=== PATIENT | female | born 1990 | race Caucasian/White ===

== ENCOUNTER 2018-09-28 16:45 | Inpatient (IN) | payer OTHER ==
[2018-09-28] MEDS: SODIUM CHLORIDE 0.9% FLUSH 10 ML SOL IV SCH (20:00)
[2018-09-28] MEDS ORDERED: CITRIC ACID/SODIUM CITRATE SOL PO ONE (20:11)
[2018-09-28] MEDS ORDERED: SODIUM CHLORIDE 0.9% 50 ML 25 ML IV PRN ×2 (20:11→20:33)
[2018-09-28 20:24] LABS: BASOPHILS % (AUTO) 1 % (0-3); EOSINOPHILS % (AUTO) 3 % (0-9); HEMATOCRIT 40 % (35-47); HEMOGLOBIN 13.7 gm/dl (12.0-15.5); LYMPHOCYTES % (AUTO) 17.5 % (10-50); MEAN CORPUSCULAR HEMOGLOBIN 29.2 pg (27.0-32.0); MEAN CORPUSCULAR HGB CONC 34.5 gm/dl (32.0-36.0); MEAN CORPUSCULAR VOLUME 85 fL (81-99); NEUTROPHILS % (AUTO) 73.1 % (37-80)
[2018-09-28] MEDS ORDERED: CEFAZOLIN SODIUM 1 GM PDS 2 GM in SODIUM CHLORIDE 0.9% 100 ML 100 ML IV ONE (20:33)
[2018-09-28] MEDS: LACTATED RINGERS 1,000 ML IV SCH ×2 (20:45→21:19)
[2018-09-28 21:11] LABS: ABO A; RH TYPE Positive
[2018-09-28 21:15] LABS: ANTIBODY SCREEN Negative
[2018-09-28 21:51] LABS: APPEARANCE,URINE Clear; BILIRUBIN,URINE NEGATIVE (NEGATIVE); COLOR,URINE Yellow; GLUCOSE, URINE (UA) NEGATIVE (NEGATIVE); KETONES,URINE NEGATIVE (NEGATIVE); LEUKOCYTE ESTERASE ,URINE NEGATIVE (NEGATIVE); NITRATE,URINE NEGATIVE (NEGATIVE); OCCULT BLOOD,URINE TRACE LYSED (NEG-TRACE); PH,URINE 6.5; UROBILINOGEN,URINE 0.2 (0.2-1.0 EU)
[2018-09-28 22:02] LABS: BACTERIA RARE (< 1+); CRYSTALS NEGATIVE (0-3 AVE/HPF); EPITHELIAL CELLS 0-2 (SQUAMOUS); RBC,URINE NEG (0-3AV/HPF); WBC,URINE NEG (0-5AV/HPF)
[2018-09-28] MEDS ORDERED: FENTANYL 100MCG/2ML SOL ONE (22:04)
[2018-09-28] MEDS ORDERED: ONDANSETRON HCL 4 MG/2 ML SOL ONE (22:16)
[2018-09-28] MEDS ORDERED: CEFAZOLIN SODIUM 1 GM PDS ONE (22:16)
[2018-09-28] MEDS ORDERED: [UNRECOGNIZED DRUG - OTHER] IV ONE ×2 (22:34)
[2018-09-28] MEDS ORDERED: BENZOCAINE/MENTHOL 1 SPR TOP PRN (23:16)
[2018-09-28] MEDS ORDERED: FLEET ENEMA PR PRN (23:16)
[2018-09-28] MEDS ORDERED: WITCH HAZEL 1 EA PAD TOP PRN (23:16)
[2018-09-28] MEDS ORDERED: DIPHENHYDRAMINE 25 MG CAP PO PRN (23:16)
[2018-09-28] MEDS ORDERED: ONDANSETRON HCL 4 MG/2 ML SOL IV PRN (23:16)
[2018-09-28] MEDS ORDERED: TEMAZEPAM 15MG 15 MG CAP PO PRN (23:16)
[2018-09-28] MEDS ORDERED: METHYLERGONOVINE MALEATE 0.2 MG TAB PO PRN (23:16)
[2018-09-28] MEDS ORDERED: BISACODYL 10 MG SUP PR PRN (23:16)
[2018-09-28] MEDS ORDERED: BUPIVACAINE/EPI 0.25% 50 ML SOL ONE (23:18)
[2018-09-29] MEDS: KETOROLAC TROMETHAMINE 30 MG/ML SOL IV PRN ×4 (01:00→21:57)
[2018-09-29] MEDS: SODIUM CHLORIDE 0.9% FLUSH 10 ML SOL IV SCH ×5 (01:00→21:58)
[2018-09-29] MEDS: LACTATED RINGERS 1,000 ML IV SCH ×2 (01:18→08:11)
[2018-09-29] MEDS: ACETAMINOPHEN 325 MG PO PRN ×3 (03:30→15:46)
[2018-09-29] MEDS: DOCUSATE SODIUM 100 MG SGL PO SCH ×2 (09:44→21:51)
[2018-09-29] MEDS: APAP/HYDROCODONE 1 EACH TABLET PO PRN (18:49)
[2018-09-30] MEDS: APAP/HYDROCODONE 1 EACH TABLET PO PRN ×4 (01:50→20:55)
[2018-09-30] MEDS: SODIUM CHLORIDE 0.9% FLUSH 10 ML SOL IV SCH (03:55)
[2018-09-30] MEDS: IBUPROFEN 600 MG TAB PO PRN ×3 (04:00→17:17)
[2018-09-30] MEDS: DOCUSATE SODIUM 100 MG SGL PO SCH ×2 (09:58→20:55)
[2018-09-30] MEDS: FOLIC ACID 1 MG TAB PO SCH (14:21)
[2018-09-30] MEDS: MULTIVITAMIN2 1 EA TAB PO SCH (14:21)
[2018-10-01] MEDS: IBUPROFEN 600 MG TAB PO PRN ×2 (01:07→08:46)
[2018-10-01 06:16] VITALS: O2SAT 98
[2018-10-01 08:44] VITALS: BP 112/70; PULSE 73; RESP 16; TEMP 98.9
[2018-10-01] MEDS: DOCUSATE SODIUM 100 MG SGL PO SCH (08:46)
[2018-10-01] MEDS: MULTIVITAMIN2 1 EA TAB PO SCH (08:46)
[2018-10-01] MEDS: FOLIC ACID 1 MG TAB PO SCH (08:46)
[2018-10-01] MEDS ORDERED: [UNRECOGNIZED DRUG - OTHER] PO SCH (09:00)
== END 2018-10-01 11:40 | disposition home or self-care (01) | DRG 788 ==
LOC: EDSTATUS 16:45 → OBOP 16:52 → UNDOADMOB 18:30 → OB 18:30 → OBSVTOIN 20:00 → INTOOBSV 20:00 → UNDODISIN 10-01 11:40
PROVIDERS: ADMIT Family Medicine; ATTEND Family Medicine
PROC: 10D00Z1 Extraction of Products of Conception, Low, Open Approach (ICD-10-PCS; principal; 2018-09-28 22:00)
DX: O82 Encounter for cesarean delivery without indication (principal); Z3A.37 37 weeks gestation of pregnancy; Z37.0 Single live birth; O69.81X0 Labor and delivery complicated by cord around neck, without compression, not applicable or unspecified
CPT/HCPCS: 36415; 59025; 81001; 85018; 85025; 86850; 86900; 86901; J0690; J1885; J2405; J2590; J3010; A9270-GY